=== PATIENT | male | born 1980 | race Caucasian/White ===

== ENCOUNTER 2020-09-09 13:48 | Emergency (ER) | payer OTHER ==
[~2020-09-09 13:48] MED LIST: TAMIFLU75 MG PO
== END 2020-09-09 17:11 | disposition home or self-care (01) ==
LOC: ER1 13:48
DX: J02.9 Acute pharyngitis, unspecified (principal); R09.81 Nasal congestion; Z88.1 Allergy status to other antibiotic agents; Z20.822 Contact with and (suspected) exposure to COVID-19
CPT/HCPCS: 0240U; 99283

== ENCOUNTER → 2020-09-25 | Outpatient (CLI) | payer OTHER | LOC: EMI 13:18 | DX: M51.16 Intervertebral disc disorders with radiculopathy, lumbar region (principal); M51.27 Other intervertebral disc displacement, lumbosacral region | CPT/HCPCS: 72148 ==